=== PATIENT | female | born 1990 | race Caucasian/White ===

== ENCOUNTER 2016-06-27 14:35 | Emergency (ER) | payer OTHER ==
[2016-06-27 14:40] VITALS: BP 128/73; BMI 20.7
--- NOTE | 2016-06-27 16:06 | RAD ---
HISTORY: Pain Study: Right hand series Comparison: None Findings: There is a spiral fracture along the distal shaft of the 5th metacarpal bone which is slightly displ aced laterally. The joint spaces are intact. The carpal bones are intact. IMPRESSION: Mildly displaced boxer's fracture of the distal 5th metacarpal bone. Reported By:
[2016-06-27] MEDS ORDERED: XYLOCAINE 1% and EPINEPHRINE 1:100,000 ONE (16:42)
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
== END 2016-06-27 17:01 | disposition home or self-care (01) ==
LOC: ER 15:04
DX: S62.309A Unspecified fracture of unspecified metacarpal bone, initial encounter for closed fracture (principal); Y04.0XXA Assault by unarmed brawl or fight, initial encounter
CPT/HCPCS: 29125; 29515; 73130; 99283; J2001

== ENCOUNTER → 2016-07-01 | Outpatient (CLI) | payer OTHER ==
[2016-06-27 14:40] VITALS: BP 128/73
[2016-07-01 11:48] LABS: BASOPHILS # (AUTO) 0.1 X10^3/uL (0.0-0.1); BASOPHILS % (AUTO) 0.8 % (0.2-1.0); EOSINOPHILS # (AUTO) 0.3 x10^3/uL (0.0-0.2); EOSINOPHILS % (AUTO) 2.9 % (0.9-2.9); HEMATOCRIT 42.2 % (36.0-47.0); HEMOGLOBIN 14.1 g/dL (12.0-16.0); LYMPHOCYTES # (AUTO) 2.5 X10^3/uL (1.3-2.9); LYMPHOCYTES % (AUTO) 25.1 % (21.0-51.0); MEAN CORPUSCULAR HGB CONC 33.5 g/dL (33.0-35.0); MEAN CORPUSCULAR VOLUME 95.5 fL (80.0-100.0); MEAN PLATELET VOLUME 8.7 fL (7.4-11.0); MONOCYTES # (AUTO) 0.6 x10^3/uL (0.3-0.8); NEUTROPHILS # (AUTO) 6.4 x10^3/uL (2.2-4.8); NEUTROPHILS % (AUTO) 65.2 % (42.0-75.0); PLATELET COUNT 193 X10^3/uL (150.0-450.0); RED BLOOD COUNT 4.41 X10^6/uL (3.5-5.4); RED CELL DISTRIBUTION WIDTH 13.3 % (11.6-16.5); WHITE BLOOD COUNT 9.8 X10^3/uL (3.6-10.0)
[2016-07-01 11:55] LABS: SERUM PREGNANCY TEST, QUAL NEGATIVE <10 mIU/mL
[2016-07-01 11:57] LABS: ALANINE AMINOTRANSFERASE 23 Units/L (12-78); ALBUMIN 3.9 g/dL (3.4-5.0); ALKALINE PHOSPHATASE 54 Units/L (46-116); ASPARTATE AMINO TRANSFERASE 14 Units/L (15-37); BLOOD UREA NITROGEN 12 mg/dL (7-18); CALCIUM 8.7 mg/dL (8.5-10.1); CARBON DIOXIDE 25.6 mmol/L (21-32); CHLORIDE 106 mmol/L (98-107); CREATININE 0.79 mg/dL (0.55-1.02); GLUCOSE 87 mg/dL (65-99); SODIUM 141 mmol/L (136-145); TOTAL PROTEIN 7.8 g/dL (6.4-8.2); eGFR BLACK RACES > 60 (>60); eGFR NON BLACK RACES > 60 (>60)
--- NOTE | 2016-07-01 12:14 | RAD ---
HISTORY: Preop right hand surgery Study: Chest two-view Comparison: June 06, 2014 Findings: The trachea is midline. The cardiac silhouette is unremarkable. The lungs are clear without focal infiltrate or effusion. The bony thorax is unremarkable. IMPRESSION: 1. No acute cardiopulmonary disease. Reported By:
[2016-07-01 12:18] LABS: BILIRUBIN,URINE NEGATIVE (NEGATIVE); BLOOD/HEMOGLOBIN,URINE NEGATIVE (NEGATIVE); GLUCOSE, URINE NEGATIVE (NEGATIVE); KETONES,URINE NEGATIVE (NEGATIVE); LEUKOCYTE ESTERASE ,URINE 1+ (NEGATIVE); NITRITES,URINE NEGATIVE (NEGATIVE); PH,URINE 6.5 (5.0 - 8.0); PROTEIN,URINE 1+ (NEGATIVE); UROBILINOGEN,URINE NORMAL (NORMAL)
[2016-07-01 12:19] LABS: APPEARANCE,URINE HAZY (CLEAR); COLOR,URINE YELLOW (YELLOW)
[2016-07-01 12:21] LABS: RBC,URINE 0-5 /HPF (NEGATIVE)
[2016-07-01 12:22] LABS: BACTERIA,URINE TRACE /HPF (NEGATIVE); SQUAMOUS EPITHELIAL CELL,UR RARE /HPF (NEGATIVE)
== END ==
LOC: LAB 10:53 → EDSTATUS 10:55
PROVIDERS: ATTEND Orthopaedic Surgery
DX: Z01.818 Encounter for other preprocedural examination (principal); Z01.810 Encounter for preprocedural cardiovascular examination; Z01.811 Encounter for preprocedural respiratory examination; Z79.899 Other long term (current) drug therapy; Z32.00 Encounter for pregnancy test, result unknown; Z11.8 Encounter for screening for other infectious and parasitic diseases; S62.336A Displaced fracture of neck of fifth metacarpal bone, right hand, initial encounter for closed fracture; X58.XXXA Exposure to other specified factors, initial encounter
CPT/HCPCS: 36415; 71020; 80053; 81001; 84703; 85025; 87641; 93005; 93010

== ENCOUNTER → 2016-07-03 | Outpatient (CLI) | payer OTHER ==
[2016-06-27 14:40] VITALS: BP 128/73
--- NOTE | 2016-07-03 12:06 | RAD ---
Examination: X-rays of the right hand. Clinical history: Fracture 5th metacarpal bone. Technique: Three views of the right hand were obtained. Comparison: None available. Findings: There is a mildly comminuted, mildly impacted and minimally displaced fracture of the distal diaphys is of the 5th metacarpal bone, with no significant angulation of the fracture noted. No soft tissue abnormality is noted. Impression: 1. Fracture of the 5th metacarpal bone, as described above. Reported By:
== END ==
LOC: RAD 10:45
PROVIDERS: ATTEND Specialist
DX: S62.336A Displaced fracture of neck of fifth metacarpal bone, right hand, initial encounter for closed fracture (principal); X58.XXXA Exposure to other specified factors, initial encounter
CPT/HCPCS: 73130

== ENCOUNTER → 2016-07-17 | Outpatient (CLI) | payer OTHER ==
[2016-06-27 14:40] VITALS: BP 128/73
--- NOTE | 2016-07-17 09:54 | RAD ---
HISTORY: Follow up fracture Study: Right hand three view Comparison: July 03, 2016, June 27, 2016 Findings: Once again noted is a fracture of the distal shaft of the 5th metacarpal mild palmar angulation is i dentified. Position and alignment is unchanged from the prior examination. There is little if any ev idence of healing as yet. The remainder of the bones and joints of the hand are intact and normally aligned. IMPRESSION: Fracture distal 5th metacarpal shaft as described Reported By:
== END ==
LOC: RAD 09:24
PROVIDERS: ATTEND Specialist
DX: S62.336A Displaced fracture of neck of fifth metacarpal bone, right hand, initial encounter for closed fracture (principal); X58.XXXA Exposure to other specified factors, initial encounter
CPT/HCPCS: 73130